=== PATIENT | female | born 1970 | race African-American/Black ===

== ENCOUNTER 2020-10-30 05:20 | Emergency (ER) | payer BC ==
[~2020-10-30] VITALS: Ht 157.5 cm; Wt 81.7 kg
[~2020-10-30 05:20] MED LIST: AMITIZA8 MCG PO; AMLODIPINE BESY10 MG PO; AUGMENTIN 500-1 EACH; BACTRIM DS TAB1 EACH PO; CITRATE OF MAG296 ML PO; COLACE100 MG PO; DICYCLOMINE HCL10 MG PO; FLEXERIL PO; FLONASE 0.05%50 MCG NASAL; HYDROCHLOROTHIA25 M1 PO; HYDROCODON-ACE1 EAC7 PO; HYDROCODONE-AP1 EAC6 PO; IBUPROFEN 800800 M1 PO; IBUPROFEN 800800 MG PO; INDOMETHACIN 2525 MG PO; IRON325 PO; K-DUR 20 MEQ T20 MEQ PO; LEVSIN SL; LISINOPRIL; LISINOPRIL20 MG PO; MIRALAX255 GM PO; NAPROSYN500 MG PO; NORCO 5-325 TA1 EACH PO; PERCOCET 5-3251 EACH PO; PHENERGAN 25 MG25 M1 PO; PHENERGAN25 M2 RC; PHENERGAN25 MG RECTAL; PRILOSEC40 MG PO; PROTONIX40 M2; PROTONIX40 M2 PO; PROTONIX40 MG PO; REGLAN 10 MG TA10 M1 PO; REGLAN 5 MG TAB5 M1 PO; SERTRALINE HCL25 M1; SIMETHICON CHEW80 M1 PO; ULTRAM 50MG TAB50 MG PO; VICODIN 5-5001 EACH PO; ZOFRAN 4 MG ORAL4 M1 DIS; ZOFRAN ODT4 MG PO; ZOFRAN4 MG PO; ZPAK PO; unknown meds
[2020-10-30 05:51] LABS: ABSOLUTE NEUTROPHILS 3.2 thou/uL (1.4-8.2); BASOPHILS 0.7 % (0.0-2.0); EOSINOPHILS 1.7 % (0.0-3.0); HEMATOCRIT 37.6 % (37.0-47.0); HEMOGLOBIN 12.8 gm/dL (12.0-15.0); LYMPHOCYTES 30.6 % (24.0-44.0); MCH 31.1 pg (26.0-34.0); MCHC 33.9 g/dL (28.0-37.0); MCV 91.7 fL (80.0-100.0); MONOCYTES 7.4 % (1.0-8.0); PLATELET COUNT 243 thou/uL (150-400); POLYS 59.6 % (36.0-66.0); RDW 12.8 % (10.5-14.5); WBC 5.4 thou/uL (4.0-11.0)
[2020-10-30 05:57] LABS: ANION GAP 12 mmol/L (7-16); BUN 16 mg/dL (7-18); CALCIUM 9.1 mg/dL (8.5-10.1); CHLORIDE 104 mmol/L (98-107); CO2 26 mmol/L (21-32); CREATININE 0.8 mg/dL (0.6-1.0); GLUCOSE 132 mg/dL (74-106); POTASSIUM 3.3 mmol/L (3.5-5.1); SODIUM 142 mmol/L (136-145)
[2020-10-30 06:08] LABS: ALBUMIN 4.2 g/dL (3.4-5.0); AMYLASE 118 U/L (25-115); DIRECT BILIRUBIN 0.1 mg/dL (<0.1-0.2); LIPASE 118 U/L (73-393); SGOT 23 U/L (15-37); SGPT 27 U/L (30-65); TOTAL BILIRUBIN 0.9 mg/dL (0.2-1.0); TOTAL PROTEIN 8.4 g/dL (6.4-8.2); TROPONIN-I <0.06 ng/mL (<0.06)
[2020-10-30 06:57] LABS: URINE BILIRUBIN NEGATIVE (Negative); URINE BLOOD TRACE (Negative); URINE CLARITY CLEAR; URINE COLOR YELLOW; URINE GLUCOSE-RANDOM* NEGATIVE (Negative); URINE KETONES 1+ (Negative); URINE LEUKOCYTES-REFLEX NEGATIVE (Negative); URINE NITRITE-REFLEX NEGATIVE (Negative); URINE PROTEIN (DIPSTICK) 1+ (Negative); URINE SPECIFIC GRAVITY >= 1.030 (1.005-1.035)
--- NOTE | 2020-10-30 07:04 | EKG ---
[place] [address] [facility] [place] [address] ELECTROCARDIOGRAM REPORT Name: PRIYA DAVIS Room #: [facility] [id number] Admission: 10/30/20 Attend Phys: Discharge: Date of : 66 Report #: [id number] [facility] ED Test Date: 2020-10-30 Test Time: 06:24:22 Pat Name: PRIYA MENDOZA Department: Room: Gender: F [employer]: : 1970 Requested By: John Peoples Order Number: [id number] MD: Abdi Schaeffer Measurements Intervals [place] Rate: 67 P: 52 WA: 169 QRS: 37 QRSD: 99 T: 36 QT: 414 QTc: 437 Interpretive Statements Sinus rhythm Consider left atrial enlargement Abnormal R-wave progression, early transition Compared to ECG 01/20/2012 06:19:38 No significant changes Electronically Signed On 10-30-2020 7:04:08 CDT by Abdi Schaeffer [email or web address] <ELECTRONICALLY SIGNED> By: Abdi Schaeffer MD, [facility] 10/30/20 0704 06 Abdi Schaeffer MD, FACC /EPI
[2020-10-30 07:30] LABS: SQUAMOUS 4-10 Moderate /LPF (0-3)
[2020-10-30 07:31] LABS: BACTERIA-REFLEX 1-9 Few /HPF (None Seen); CASTS None Seen /LPF (None Seen); CRYSTALS None Seen /LPF (None Seen); URINE RBC 1-2 Rare /HPF (NONE SEEN); URINE WBC-REFLEX 0-5 Rare /HPF (0-5)
[2020-10-30 08:56] VITALS: BP 122/80
[2020-11-04] MEDS ORDERED: AF CAPSICUM 0.060 GM TOP (12:48)
[2020-11-04] MEDS ORDERED: PROTONIX40 M2 PO (12:48)
[2020-11-04] MEDS ORDERED: METOPROLOL TART25 MG PO (12:48)
[2020-11-04] MEDS ORDERED: ZOFRAN 4 MG ORAL4 MG PO (12:48)
== END 2020-10-30 09:24 | disposition home or self-care (01) ==
LOC: ER 05:20
PROVIDERS: Emergency Medicine
DX: R10.9 Unspecified abdominal pain (principal); R11.10 Vomiting, unspecified; I10 Essential (primary) hypertension; F17.210 Nicotine dependence, cigarettes, uncomplicated; Z79.899 Other long term (current) drug therapy; Z88.6 Allergy status to analgesic agent; Z90.49 Acquired absence of other specified parts of digestive tract; Z90.710 Acquired absence of both cervix and uterus

== ENCOUNTER 2020-11-01 02:53 | Emergency (ER) | payer BC ==
[~2020-11-01] VITALS: Ht 170.2 cm; Wt 79.4 kg
[2020-11-01 05:53] VITALS: BP 160/91
== END 2020-11-01 06:18 | disposition home or self-care (01) ==
LOC: ER 02:53
DX: F12.988 Cannabis use, unspecified with other cannabis-induced disorder (principal); R11.10 Vomiting, unspecified; R10.13 Epigastric pain; I10 Essential (primary) hypertension; F17.210 Nicotine dependence, cigarettes, uncomplicated; Z88.6 Allergy status to analgesic agent; Z79.899 Other long term (current) drug therapy; Z90.710 Acquired absence of both cervix and uterus; Z90.49 Acquired absence of other specified parts of digestive tract

== ENCOUNTER 2020-11-01 08:46 | Inpatient (IN) | payer BC ==
[~2020-11-01] VITALS: Ht 157.5 cm; Wt 79.4 kg
[2020-11-01 08:47] VITALS: BP 173/89
[2020-11-01 09:45] LABS: ABSOLUTE NEUTROPHILS 9.4 thou/uL (1.4-8.2); BASOPHILS 0.3 % (0.0-2.0); HEMATOCRIT 38.1 % (37.0-47.0); HEMOGLOBIN 13.4 gm/dL (12.0-15.0); LYMPHOCYTES 2.5 % (24.0-44.0); MCH 31.7 pg (26.0-34.0); MCHC 35.1 g/dL (28.0-37.0); MCV 90.2 fL (80.0-100.0); MONOCYTES 0.9 % (1.0-8.0); PLATELET COUNT 232 thou/uL (150-400); POLYS 96.3 % (36.0-66.0); RBC 4.22 mil/uL (4.20-5.00); RDW 12.7 % (10.5-14.5); WBC 9.8 thou/uL (4.0-11.0)
[2020-11-01 09:56] LABS: ALBUMIN 4.7 g/dL (3.4-5.0); CALCIUM 9.6 mg/dL (8.5-10.1); TOTAL BILIRUBIN 0.6 mg/dL (0.2-1.0); TOTAL PROTEIN 9.4 g/dL (6.4-8.2)
[2020-11-01 09:59] LABS: POTASSIUM 2.8 mmol/L (3.5-5.1)
[2020-11-01 11:00] LABS: URINE BILIRUBIN NEGATIVE (Negative); URINE BLOOD 2+ (Negative); URINE CLARITY CLEAR; URINE COLOR YELLOW; URINE GLUCOSE-RANDOM* NEGATIVE (Negative); URINE KETONES 2+ (Negative); URINE LEUKOCYTES-REFLEX NEGATIVE (Negative); URINE NITRITE-REFLEX NEGATIVE (Negative); URINE PROTEIN (DIPSTICK) 1+ (Negative); URINE SPECIFIC GRAVITY 1.025 (1.005-1.035); URINE UROBILINOGEN 0.2 E.U./dl (0.2-1.0)
[2020-11-01 11:14] LABS: MUCUS 0-3 Light strn/LPF (None Seen)
[2020-11-01 11:15] LABS: CASTS None Seen /LPF (None Seen); CRYSTALS None Seen /LPF (None Seen); SQUAMOUS 0-3 Few /LPF (0-3)
[2020-11-01 11:17] LABS: URINE RBC 3-10 Few /HPF (NONE SEEN); URINE WBC-REFLEX 0-5 Rare /HPF (0-5)
[2020-11-01 11:18] LABS: BACTERIA-REFLEX 1-9 Few /HPF (None Seen)
[2020-11-01 11:58] LABS: AMP/METHAMP Negative (Negative); BARBITURATES Negative (Negative); BENZODIAZEPINES Negative (Negative); COCAINE Negative (Negative); METHADONE Negative (Negative); OPIATES Negative (Negative); PCP Negative (Negative)
[2020-11-01 12:15] VITALS: BP 151/81
[2020-11-01 12:22] LABS: FOLIC ACID 15.9 ng/mL (8.6-58.9)
--- NOTE | 2020-11-01 15:10 | NUR ---
Pt refuses to answer admission questions, will wait for pt to be more awake.
[2020-11-01 20:18] VITALS: BP 134/58
[2020-11-01 22:06] VITALS: BP 134/58
[2020-11-02 05:11] LABS: ABSOLUTE NEUTROPHILS 7.2 thou/uL (1.4-8.2); BASOPHILS 0.5 % (0.0-2.0); HEMOGLOBIN 13.5 gm/dL (12.0-15.0); LYMPHOCYTES 12.5 % (24.0-44.0); MCH 30.9 pg (26.0-34.0); MCHC 33.8 g/dL (28.0-37.0); MCV 91.4 fL (80.0-100.0); MONOCYTES 5.2 % (1.0-8.0); PLATELET COUNT 265 thou/uL (150-400); POLYS 81.8 % (36.0-66.0); RBC 4.37 mil/uL (4.20-5.00); RDW 12.9 % (10.5-14.5); WBC 8.8 thou/uL (4.0-11.0)
[2020-11-02 05:57] LABS: CALCIUM 10.2 mg/dL (8.5-10.1); CREATININE 0.9 mg/dL (0.6-1.0); MAGNESIUM 1.9 mg/dL (1.8-2.4)
[2020-11-02 06:11] LABS: POTASSIUM 2.9 mmol/L (3.5-5.1)
--- NOTE | 2020-11-02 07:26 | NUR ---
UPON SHIFT REPORT, PT SLEEPING. LEFT FOREARM IV INFILTRATED, DISCONTINUED, NEW SITE TO BE OBTAINED. UPON SHIFT ASSESSMENT, PT SLEEPING, AROUSABLE BY NAME, NOTABLY DROWSY. PT ASSESSED WITH FLACC OF 0. PT RESTING WITHOUT INTERRUPTION OR OBSERVATION OF PAIN, DISCOMFORT, OR SOB WHILE ON ROOM AIR. PT RESTING IN BED THROUGHOUT SHIFT, FREQUENT REPOSITIONING ENCOURAGED, PT NOTED TO SHIFT INDEPENDENTLY WHILE IN BED. PT AMBULATING WITH WALKER AND STANDBY ASSIST TO BEDSIDE COMMODE, TOOK SHOWER THIS MORNING. PT REMAINS ON CLEAR LIQUID DIET, TOLERATING PO INTAKE WITHOUT ISSUE. PT WITH NAUSEA AND VOMITTING AFTER AMBULATION OR POSITION CHANGES. EMESIS X2 OF BILE NOTED. PT RECEIVING SCHEDULED PO BENTYL QID. UNABLE TO OBTAIN NEW IV SITE, IV TEAM TO BE NOTIFIED IN MORNING. RECEIVED CRITICAL LAB FOR K+ OF 2.9, NOTIFIED ONCALL PROVIDER, RECEIVED ONETIME ORDER FOR 40MEQ PO KCL. PT ENCOURAGED TO NOTIFY STAFF FOR ALL NEEDS, CALL LIGHT WITHIN REACH, BED ALARM ON, BED LOCKED IN LOWEST POSITION, FREQUENT MONITORING WILL CONTINUE.
[2020-11-02 07:50] VITALS: BP 171/98
[2020-11-02 08:44] VITALS: BP 175/98
--- NOTE | 2020-11-02 09:47 | NUR ---
PATIENT REFUSES TO WAKE UP WHEN APPROACHED. WILL OPEN EYES BUT THEN CLOSE AND NOT CONVERSE WITH STAFF. ATTEMPTED WITH GIVE PO MEDS BUT PATIENT NOT RECEPTIVE. NOTED K+ 2.9 BUT REFUSING TO TAKE PO POTASSIUM. IV INFILTRATED OVER NOC. PATIENT CURRENTLY WITH NO IV ACCESS. PAGED IV NURSE TO ATTEMPT FOR IV. WILL UPDATE DR. BERNSTEIN ON REFUSAL OF MEDICATION.
--- NOTE | 2020-11-02 11:06 | NUR ---
VAT CONSULTED FOR MIDLINE BY DR LAZO. POLLY BRACHIAL WAS WIDELY PATENT WITH USG. 4FR POWER MIDLINE TRIMMED TO 14CM INSERTED TO 0CM WITH BRISK BR. ML RELEASED FOR IMMEDIATE USE PER PROTOCOL TO RN. PT TOLERATED WELL
[2020-11-02 12:06] VITALS: BP 158/107
--- NOTE | 2020-11-02 14:52 | NUR ---
ASSUMED PATIENT CARE NOW. PATIENT CURRENTLY RESTING IN ROOM W EYES CLOSED. POTASSIUM BAG #3 CURRENTLY INFUSING ON R UA MIDLINE; PLACED BY VAT THIS A.M. PATIENT VOICING NO CONCERNS AT THIS TIME. MEDICAL RECORDS REQUESTED OF PRIOR GI PROCEDURE; GI TEAM HERE INDICATED SCOPE MAY BE NEEDED THIS VISIT SINCE ALL OTHER DIAGNOSTICS NEGATIVE. WILL CONTINUE TO MONITOR PATIENT FOR PAIN OR OTHER NEEDS AND FOLLOW PLAN OF CARE.
--- NOTE | 2020-11-02 14:53 | NUR ---
PT ADMITTED RELATED TO N/V WITH ABDOMINAL PAIN. CM REVIEWED CHART AND SPOKE WITH CARE TEAM. CM MET WITH PT AT BEDSIDE THIS DAY. PT APPEARED TO BE A&O X4 BUT VERY SLEEPY. 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 PT INDICATED HE PCP IS DR. MEDINA AT [facility]. PT INDICATED HER DTR BRODERICK WOULD BE A GOOD CONTACT FOR HER BUT SHE DOESN'T KNOW HER NUMBER OFF THE TOP OF HER HEAD. 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 CM FOLLOWING REGARDING DC PLANNING.
[2020-11-02 16:00] VITALS: BP 152/99
[2020-11-02 20:20] VITALS: BP 145/95
--- NOTE | 2020-11-03 06:00 | NUR ---
Pt. rested quietly at intervals during the night when checked on during frequent rounds. She was medicated for c/o abdominal pain (see emar) with some relief voiced. No c/o nausea. Pt. currently npo for EGD this am. Bed alarm is on.
[2020-11-03 08:04] VITALS: BP 200/145
[2020-11-03 12:22] VITALS: BP 157/111
--- NOTE | 2020-11-03 13:04 | NUR ---
ASSUMED PT CARE AROUND 0710. PT ALERT X ORIENTED X4. ON ROOM AIR. 1 X PERSON ASST TO BEDSIDE COMMODE.NPO FOR EGD. IV RT UA/MIDLINE WITH NS/100MLS/HR.PT'S BP WAS AROND 200/145 TODAY MORNING, AFTER BP MEDICINE IT WAS 200/124 AROUND 1000. AFTER GIVING METOPROLO, BP WAS 160/102 AROUND 1153. BP CHECKING MANUALLY. PT COMPLAINS OF PAIN OF 10, DR BERNSTEIN SAID TRY TO GIVE TOPICAL ANALGESIC FOR PAIN (H/O MIRVANA ABUSE). PT TOOK A SHOWER AND DIDN'T WANT TO COME OUT OF THE BATHROOM IT WAS RELIEVING HER PAIN. DR AWARE OF PT'S BP AND PAIN. PT WENT FOR EGD AROUND 1226. WILL CONT TO MONITOR.
[2020-11-03 15:01] VITALS: BP 170/120
--- NOTE | 2020-11-04 04:23 | NUR ---
RECEIVED CARE OF THIS PATIENT AT 1938 FROM ED VIA CART ACCOMPANIED BY ED PERSONEL. PATIENT ALERT AND ORIENTED XP[place], PLACE AND TIME. CONFUSED AT TIMES. UP TO BSC WITH ASSIST. C/O PAIN, MED GIVEN. HAS COLOSTOMY, PATIENT VERY THIN. SLEPT OFF AND ON DURING NIGHT.
[2020-11-04 07:20] VITALS: BP 128/105
--- NOTE | 2020-11-04 08:15 | NUR ---
RECIEVED CARE OF THIS PATIENT AT 1900. PATIENT SLEEPING BUT AROUSES EASILY. ORIENTED X4. C/O PAIN AND N/V. MEDS GIVEN. UP CITH ASSIST TO BATHROOM. SLEPT MOST OF NIGHT.
--- NOTE | 2020-11-04 10:52 | NUR ---
ASSUMED PT CARE THIS AM. PT IS ALERT & ORIENTED X4. PT HAS IV SITE ON R UA. PT ON TELE. PT C/O OF PAIN AND GIVEN PAIN MEDICATION. PT VOMITTED THIS AM AND GIVEN MED. INFORMED MD AND REQUEST FOR STRONGER PAIN MEDICATION DUE TO PT BEEN CRYING THIS AM. GIVEN NEW PAIN MEDICATION AND REASSESS PT. PT STATED PAIN MEDICATION IS WORKING AND PT NOT BEEN CRYING SINCE THEN. WILL CONTINUE TO MONITOR PT. FOLLOW POC.
[2020-11-04 11:41] LABS: GLYCOHEMOGLOBIN (HGB A1C) 4.6
[2020-11-04] MEDS ORDERED: METOPROLOL TART25 MG PO ×2 (12:48)
[2020-11-04] MEDS ORDERED: ZOFRAN 4 MG ORAL4 MG PO ×2 (12:48)
[2020-11-04] MEDS ORDERED: AF CAPSICUM 0.060 GM TOP ×2 (12:48)
[2020-11-04] MEDS ORDERED: PROTONIX40 M2 PO ×2 (12:48)
[2020-11-04 13:00] VITALS: BP 128/105
--- NOTE | 2020-11-06 17:06 | PATH ---
[facility] [address] [place] [address] PATHOLOGY RPT PROCEDURE Name: TROY MENDOZAPRIYA Bessie Room #: 464-P DIS IN M.R.#: [id number] Admission: 11/01/20 Date of : 66 Discharge: 11/04/20 Report #: [id number] Path Case #: [id number] [facility] Accession Number: [id number] . 01 Material submitted: . PART A: duodenum - BIOPSY OF DUODENUM PART B: gastrointestinal site - BIOPSY OF GASTRITIS . 01 Clinical history: . ABDOMINAL PAIN FOR A- RULE OUT SPRUE . 02 Diagnosis: A. Small bowel mucosa, duodenum rule out celiac sprue, endoscopic biopsy: - Mild non-specific acute and chronic duodenitis with focal villous blunting. - Negative for increase in intraepithelial lymphocytes. - Negative for dysplasia or malignancy. . B. Gastric mucosa, gastritis rule out H. pylori, endoscopic biopsy: - Mild chronic gastritis. - Negative for intestinal metaplasia or atrophy. - Negative for Helicobacter pylori (properly controlled immunohistochemical stain performed). (IUV/db; 11/06/2020) LBQ 11/06/2020 1115 Local . 02 Electronically signed: . Rosibel Camargo MD, Pathologist NPI- [id number] . 01 Gross description: . A. Received in formalin labeled "Priya Sharp, biopsy of duodenum rule out sprue "are multiple fragments of lara-brown soft tissue measuring in aggregate 1.4 x 0.5 x 0.3 cm. The specimen is submitted entirely in A1. . B. Received in formalin labeled "Priya Sharp biopsy of gastritis rule out H. pylori" are multiple fragments of lara-brown soft tissue measuring 1.6 x 0.3 x 0.2 cm. The specimen is submitted entirely in B1. ([facility]; 11/04/2020) GZA/GZA 11/04/2020 1021 Local . 02 Pathologist provided ICD-10: K29.80, K29.50 . 02 CPT . [address] [address] PATHOLOGY RPT PROCEDURE Name: PRIYA SHARP Room #: 464-P DIS IN M.R.#: [id number] Admission: 11/01/20 Date of : 66 Discharge: 11/04/20 Report #: [id number] Path Case #: [id number] Specimen Comment: A courtesy copy of this report has been sent to [phone], [phone] Specimen Comment: 2008 Specimen Comment: Report sent to / Performed at: [address], [place] [id number] MD Samuel Rojas MD Phone: [phone] Performed at: [address] [id number] MD Rosibel Camargo MD Phone: [phone]
== END 2020-11-04 15:30 | disposition home or self-care (01) | DRG 392 ==
LOC: ER 08:46 → 4W 11:21 → EROBS 11:21 → 4W 14:18
PROVIDERS: Emergency Medicine; Nurse Practitioner; ADMIT Hospitalist; ATTEND Hospitalist
PROC: 05H933Z Insertion of Infusion Device into Right Brachial Vein, Percutaneous Approach (ICD-10-PCS; principal; 2020-11-02)
PROC: 0DB68ZX Excision of Stomach, Via Natural or Artificial Opening Endoscopic, Diagnostic (ICD-10-PCS; 2020-11-03)
DX: K29.70 Gastritis, unspecified, without bleeding (principal); F41.9 Anxiety disorder, unspecified; I10 Essential (primary) hypertension; E87.6 Hypokalemia; K58.9 Irritable bowel syndrome, unspecified; F12.90 Cannabis use, unspecified, uncomplicated; K20.90 Esophagitis, unspecified without bleeding; K44.9 Diaphragmatic hernia without obstruction or gangrene; Z20.822 Contact with and (suspected) exposure to COVID-19; Z90.710 Acquired absence of both cervix and uterus; Z90.49 Acquired absence of other specified parts of digestive tract; Z88.6 Allergy status to analgesic agent
CPT/HCPCS: 10045; 27000; 62110; 62900; 70005

== ENCOUNTER 2021-03-28 13:03 | Emergency (ER) | payer BC ==
[~2021-03-28] VITALS: Ht 157.5 cm; Wt 73.0 kg
--- NOTE | ~2021-03-28 | EMS ---
[facility] [address] [place] [address] EMS Patient Care Report Name: PRIYA DAVIS Room #: DEP JESSIE Ramirez#: [id number] Admission: 03/28/21 Attend Phys: Discharge: 03/28/21 Date of : 66 Report #: [id number] THIS REPORT FOR: //name// Report Transmitted: 03/30/2021 13:16 EMS Care Summary [place], [place]/[facility] Incident [phone] @ 03/28/2021 12:29 Incident Location [address] [place], [place] [id number] Patient PRIYA TEJADA Female, 50 Years 1970 Patient Address [address] [place] [address] Patient History Irritable Bowel Syndrome, Patient Allergies Other drug allergy, Patient Medications Other, Chief Complaint ABD PAIN Disposition Transported No Lights/[place] Dispatch Reason Abdominal Pain/Problems Transported To [facility] Narrative MEDIC 30 RESPONDS TO A RESIDENCE ON A REPORTED ABDOMINAL PAIN. UPON ARRIVAL EMS FINDS ADULT FEMALE PATIENT SLOWLY WALKING THROUGH LIVING ROOM WITH FIREFIGHTERS ASSISTING. PT'S BODY LANGUAGE, AND FACIAL GRIMACE SUGGEST PT TO BE IN DISCOMFORT. PT'S MALE SIGNIFICANT OTHER REPORTS PATIENT HAS HAD RECURRENT [facility] [address] [place] [address] EMS Patient Care Report Name: PRIYA DAVIS Room #: DEP ER James#: [id number] Admission: 03/28/21 Attend Phys: Discharge: 03/28/21 Date of : 66 Report #: [id number] ABDOMINAL PAIN FOR THE PAST APPROXIMATE 2-3 WEEKS, AND HAS BEEN SEEN AT THE ER TWICE SINCE THEN WITH FIRST ED VISIT ON 03/13/21, AND LAST ED VISIT ON 03/26/21. DISCHARGE PAPERWORK FROM 03/13/21 VISIT MENTIONS DIAGNOSIS OF UNKNOWN ABD PAIN. PT REPORTS HAVING KNOWN HX OF IBS, AND STATES CURRENT SYMPTOMS APPEAR SIMILAR TO PREVIOUS EVENTS INVOLVING IBS. PT DENIES RECENT EXTERNAL TRAUMA. PT DESCRIBES LAST BM APPROXIMATELY 3-4 DAYS PRIOR TO TODAY. PT TRANSPORTED WITH ONGOING ASSESSMENT. REPORT TO STAFF UPON ARRIVAL. Initial Vitals @12:47P: 62,R: 16,BP: 125/81,SpO2: 100, @12:40P: 122,R: 16,BP: 126/89,GCS: 15,SpO2: 100,Revised Trauma: 12, Assessments @12:32MENTAL:Event Oriented,Time Oriented,Person Oriented,Place Oriented,SKIN:HEENT:Head/Face: No Abnormalities,Neck/Airway: No Abnormalities,LUNG SOUNDS:Right Upper: Tenderness,Right Lower: Tenderness,Left Lower: Tenderness,General: Nausea,Left Upper: Tenderness,General: Vomiting,ABDOMEN:Right Upper: Tenderness,Right Lower: Tenderness,Left Lower: Tenderness,General: Nausea,Left Upper: Tenderness,General: Vomiting,PELVIS//GI:EXTREMITIES:Left Arm: No Abnormalities,Right Arm: No Abnormalities,Left Leg: No Abnormalities,Right Leg: No Abnormalities,PULSE:Radial: 2+ Normal,NEURO:No Abnormalities,@12:41MENTAL:Event Oriented,Person Oriented,Place Oriented,Time Oriented,SKIN:HEENT:Head/Face: No Abnormalities,Neck/Airway: No Abnormalities,LUNG SOUNDS:Right Lower: Tenderness,Left Upper: Tenderness,Right Upper: Tenderness,General: Vomiting,General: Nausea,Left Lower: Tenderness,ABDOMEN:Right Lower: Tenderness,Left Upper: Tenderness,Right Upper: Tenderness,General: Vomiting,General: Nausea,Left Lower: Tenderness,PELVIS//GI:EXTREMITIES:Left Arm: No Abnormalities,Right Arm: No Abnormalities,Left Leg: No Abnormalities,Right Leg: No Abnormalities,PULSE:NEURO:No Abnormalities, Impression Abdominal Pain Procedures @12:32ALS AssessmentResponse: UnchangedSucceeded@12:35StretcherResponse: Unchanged Timeline 12:24,Call Received 12:24,Dispatch Notified 12:29,Dispatched 12:29,En Route 12:30,On Scene 12:32,At Patient 12:32,ALS Assessment,Response: UnchangedSucceeded, [address] [address] EMS Patient Care Report Name: PRIYA DAVIS Room #: [facility] James#: [id number] Admission: 03/28/21 Attend Phys: Discharge: 03/28/21 Date of : 66 Report #: [id number] 12:35,Stretcher,Response: Unchanged 12:40,BP: 126/89 M,PULSE: 122,RR: 16 R,SPO2: 100 Ox,ETCO2: ,BG: ,PAIN: ,GCS: 15, 12:45,Depart Scene 12:47,BP: 125/81 M,PULSE: 62,RR: 16 R,SPO2: 100 Ox,ETCO2: ,BG: ,PAIN: ,GCS: , 13:16,At Destination 13:34,Call Closed Disclaimer v1.1 Copyright 2020 [employer] This EMS Care Summary contains data elements from the applicable legal record (which may be displayed differently). It is designed to provide pertinent information for the following purposes: continuity of care, clinical quality, and state data reporting. The complete legal record is available to ED staff and administrators of the receiving hospital in [employer]'s Patient Tracker. All data is provided "as is."
[~2021-03-28 13:03] MED LIST changes: +AF CAPSICUM 0.060 GM TOP; +METOPROLOL TART25 MG PO; +ZOFRAN 4 MG ORAL4 MG PO
[2021-03-28 14:15] LABS: ABSOLUTE NEUTROPHILS 4.8 thou/uL (1.4-8.2); BASOPHILS 0.1 % (0.0-2.0); HEMATOCRIT 36.9 % (37.0-47.0); HEMOGLOBIN 12.6 gm/dL (12.0-15.0); LYMPHOCYTES 12.7 % (24.0-44.0); MCH 31.1 pg (26.0-34.0); MCHC 34.2 g/dL (28.0-37.0); MCV 90.9 fL (80.0-100.0); MONOCYTES 9.5 % (1.0-8.0); PLATELET COUNT 240 thou/uL (150-400); POLYS 77.7 % (36.0-66.0); RBC 4.06 mil/uL (4.20-5.00); RDW 13.2 % (10.5-14.5); WBC 6.2 thou/uL (4.0-11.0)
[2021-03-28 14:20] LABS: ALBUMIN 4.5 g/dL (3.4-5.0); CALCIUM 9.8 mg/dL (8.5-10.1); CREATININE 1.5 mg/dL (0.6-1.0); TOTAL BILIRUBIN 1.2 mg/dL (0.2-1.0); TOTAL PROTEIN 9.2 g/dL (6.4-8.2)
[2021-03-28 14:24] LABS: POTASSIUM 2.3 mmol/L (3.5-5.1)
[2021-03-28] MEDS ORDERED: ZESTRIL40 MG PO (15:47)
[2021-03-28] MEDS ORDERED: DULOXETINE HCL60 MG PO (15:48)
[2021-03-28] MEDS ORDERED: DICYCLOMINE HCL20 MG PO (15:48)
[2021-03-28] MEDS ORDERED: CARVEDILOL12.5 MG PO (15:53)
[2021-03-28] MEDS ORDERED: ACID CONTROLLER20 MG PO (15:53)
[2021-03-28] MEDS ORDERED: TOPROL XL100 MG PO (15:53)
[2021-03-28] MEDS ORDERED: BENTYL 10 MG CA10 MG PO (15:53)
[2021-03-28] MEDS ORDERED: NORVASC10 MG PO (15:54)
[2021-03-28 16:53] LABS: URINE BLOOD 2+ (Negative); URINE CLARITY CLEAR; URINE COLOR YELLOW; URINE GLUCOSE-RANDOM* NEGATIVE (Negative); URINE KETONES TRACE (Negative); URINE LEUKOCYTES-REFLEX NEGATIVE (Negative); URINE NITRITE-REFLEX NEGATIVE (Negative); URINE PROTEIN (DIPSTICK) 3+ (Negative); URINE SPECIFIC GRAVITY >= 1.030 (1.005-1.035)
[2021-03-28 17:25] LABS: ICTOTEST (BILI CONFIRMATORY) Negative (Negative); URINE BILIRUBIN NEGATIVE (Negative)
[2021-03-28 17:28] LABS: SQUAMOUS 4-10 Moderate /LPF (0-3); URINE WBC-REFLEX 6-15 Few /HPF (0-5)
[2021-03-28 17:29] LABS: AMP/METHAMP Negative (Negative); BACTERIA-REFLEX >30 Many /HPF (None Seen); BARBITURATES Negative (Negative); BENZODIAZEPINES Negative (Negative); COCAINE Negative (Negative); FINE GRANULAR CASTS 0-3 Few /LPF (None Seen); HYALINE CASTS 0-3 Few /LPF (None Seen); METHADONE Negative (Negative); MUCUS >6 Heavy strn/LPF (None Seen); OPIATES Negative (Negative); PCP Negative (Negative); URINE RBC 3-10 Few /HPF (NONE SEEN)
[2021-03-28] MEDS ORDERED: ONDANSETRON HCL4 M2 PO (18:28)
[2021-03-28] MEDS ORDERED: NAPROXEN375 MG PO (18:28)
[2021-03-28] MEDS ORDERED: KLOR-CON M2020 MEQ PO (18:34)
[2021-03-28 19:24] VITALS: BP 154/98
== END 2021-03-28 19:26 | disposition home or self-care (01) ==
LOC: ER 13:03
PROVIDERS: Emergency Medicine
DX: R10.84 Generalized abdominal pain (principal); R11.2 Nausea with vomiting, unspecified; I10 Essential (primary) hypertension; F17.210 Nicotine dependence, cigarettes, uncomplicated; Z79.899 Other long term (current) drug therapy; Z90.49 Acquired absence of other specified parts of digestive tract; Z90.710 Acquired absence of both cervix and uterus